=== PATIENT | female | born 1945 | race Caucasian/White ===

== ENCOUNTER 2017-05-26 08:20 | Day surgery (SDC) | payer MEDICARE, OTHER ==
[~2017-05-26] VITALS: Ht 170.2 cm; Wt 53.0 kg
[~2017-05-26 08:20] MED LIST: CHOL500051 PO; CITA20TA11 PO; DICL50TA7 PO; ESOM20CA28 PO; ETOD400T PO; HYDR-3090 PO; MULT-1018 PO; ONDA-54 PO; PARO40TA3 PO; Sodium Chloride LOK Flush 10 mL Syringe IV PRN; VENL37.53 PO; VENL75CA PO; VITA100C22 PO; fentaNYL-PF 50 mCg/mL 2 mL Inj IVPUSH PRN
[2017-05-26 08:50] VITALS: BP 133/87; PULSE 84; RESP 16; O2SAT 98
[2017-05-26] MEDS ORDERED: OMEP20CA11 PO (08:56)
[2017-05-26] MEDS: 0.9% Sodium Chloride 1,000 ML IV SCH ×3 (10:21→11:06)
[2017-05-26 11:12] VITALS: BP 126/77; PULSE 90; RESP 14; O2SAT 98
[2017-05-26 11:21] VITALS: BP 121/72; PULSE 88; RESP 14; O2SAT 92
[2017-05-26 11:31] VITALS: BP 131/76; PULSE 96; RESP 16; O2SAT 98
[2017-05-26 11:36] VITALS: BP 153/89; PULSE 92; RESP 14; O2SAT 98
--- NOTE | 2017-05-26 13:18 | ENDO ---
[address] [address] ENDOSCOPY PROCEDURE PATIENT: LATONIA FELIX : 1945 MR#: [id number] ADMIT: 05/26/2017 JOB ID: [id number] PREOPERATIVE DIAGNOSIS(ES): 1. History of gastroesophageal reflux disease. 2. Diarrhea. POSTOPERATIVE DIAGNOSIS(ES): 1. Small hiatal hernia. 2. 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 3. Pedunculated distal sigmoid colon polyp. OPERATION: 1. Upper endoscopy with duodenal gastric and gastroesophageal junction biopsies. 2. Colonoscopy to cecum with random colon biopsies and sigmoid colon snare polypectomy with cautery. SURGEON: Dakotah Duran MD INDICATIONS: A 71-year-old female who seven years ago I repaired a large recurrent hiatal hernia. She has some reflux symptoms. She also has diarrhea. After discussing the options with the patient, it was elected to proceed with an upper endoscopy as well as a colonoscopy. FINDINGS: The Z-line, which was irregular, was at around 40-41 cm from the incisors. The esophageal hiatus appeared to be slightly below that, suggesting a small hiatal hernia. There was no obvious neoplastic change or ulceration or stricture of the GE junction, but I did do biopsies because of the possibility of short-segment Owens's. Retroflexed views of the cardia showed an excellent flap valve. The fundus and body and antrum of the stomach appeared normal. I did biopsies of the antrum. The pylorus and duodenum into the second portion of the duodenum appeared normal. I did duodenal biopsies because of her diarrhea. The scope was advanced to the cecum. It was withdrawn over 8 minutes and 54 seconds. The appendiceal orifice and ileocecal valve were identified. I did not intubate the terminal ileum. She had a good prep. Random biopsies were obtained of normal colonic mucosa. In the distal sigmoid colon was a pedunculated polyp removed with a snare with cautery. The rectum was normal, including retroflexed views of the rectum. DESCRIPTION OF PROCEDURE: The procedure and sedation plan was discussed with the patient and nursing staff. A procedural time-out was held. She received 7 mg of Versed and 200 mcg of fentanyl for both procedures. The Olympus GIF H 180 J video endoscope was passed transorally, advanced into the second portion of the duodenum, with results and procedures as discussed above. Biopsies were taken. Not stated above is that there is a retained silk suture from her recurrent hiatal hernia repair. After repositioning, a digital rectal exam was performed. The Olympus PCF H 180 AL video colonoscope was passed transanally, advanced to the cecum. As it was withdrawn, random colonic biopsies were obtained, and then when the distal sigmoid colon polyp was identified it was removed with a snare and cautery. Retroflexed views of the rectum were normal. The patient tolerated the procedure well. PLAN: I will call her with the results of her biopsies and histology. At a minimum she should have a repeat colonoscopy in five years. Pending the results of her histology, she may need a repeat upper endoscopy in two years.
--- NOTE | 2017-05-30 11:03 | PATH ---
SURGICAL PATHOLOGY Attending Physician:Vanesa Melgar CASE STATUS: Signed Out PATIENT NAME: LATONIA FELIX PID: [id number] : 1945 DATE COLLECTED:05/26/2017 00:00 SPECIMEN: 1: Duodenum, Biopsy 2: Stomach, Antrum, Biopsy 3: Esophagus, Biopsy 4: Colon, Biopsy 5: Colon, Polyp CLINICAL HISTORY: 1). DUODENAL BIOPSY 2). ANTRUM BIOPSY 3). GE JUNCTION BIOPSY 4). RANDOM COLON BIOPSY 5). SIGMOID COLON POLYP FINAL DIAGNOSIS: 1. Duodenal Biopsy: Duodenal mucosa with no diagnostic alterations. Negative for inflammation, celiac, dysplasia, and malignancy. 2. Antrum Biopsy: Gastric antral mucosa with no diagnostic alterations Negative for Helicobacter organisms on H&E stains. Negative for intestinal metaplasia. Negative for dysplasia or malignancy. 3. GE Junction Biopsy: Squamocolumnar mucosa with intestinal metaplasia consistent with Owens's esophagus. Negative for dysplasia and malignancy. 4. Random Colon Biopsy: Mild chronic colitis with increased intraepithelial lymphocytes, see comment. Negative for dysplasia or malignancy. 5. Sigmoid Colon Polyp: Tubular adenoma. DIAGNOSIS COMMENT: The colonic mucosal biopsies (specimen 4) show mildly increased lymphocytes in the lamina propria and in gland and surface epithelium, with decreased surface mucin. No granulomas or crypt abscesses are identified. Gland architecture is intact. The differential diagnosis of this histologic pattern includes lymphocytic colitis, resolving infectious colitis, and drug toxicity. Correlation with clinical and endoscopic findings is recommended. ICD10: K22.70 K52.89 D12.5 GROSS DESCRIPTION: Received five formalin-filled containers each labeled with the patient' s name. 1. Received in formalin, labeled with the patient' s name and "duodenal biopsy", are three fragments of lieberman, soft tissue ranging from 0.1 x 0.1 x 0.1 cm to 0.3 x 0.2 x 0.1 cm. The fragments are totally submitted in cassette 1A. 2. Received in formalin, labeled with the patient' s name and "antrum biopsies", are two fragments of lieberman, soft tissue ranging from 0.2 x 0.1 x 0.1 cm to 0.3 x 0.2 x 0.1 cm. The fragments are totally submitted in cassette 2A. 3. Received in formalin, labeled with the patient' s name and "GEJ biopsies", are five fragments of lieberman, soft tissue ranging from 0.1 x 0.1 x 0.1 cm to 0.3 x 0.1 x 0.1 cm. The fragments are totally submitted in cassette 3A. 4. Received in formalin, labeled with the patient' s name and "random colon biopsies", are multiple fragments of lieberman, soft tissue ranging from 0.2 x 0.1 x 0.1 cm to 0.5 x 0.1 x 0.1 cm. The fragments are totally submitted in cassette 4A. 5. Received in formalin, labeled with the patient' s name and "sigmoid colon polyp", is one fragment of lieberman, soft tissue measuring 0.8 x 0.5 x 0.4 cm. The fragment is bisected and totally submitted in cassette 5A. [id number]) MICRO DESCRIPTION: Please see microscopic. ICD-9 CODES: CPT CODES: 1: 20907 2: 92183 3: 46475 4: 93478 5: 67426 Electronically Signed Out Bhavana Barrow MD [facility] [address], [place] [address] Technical component performed at [facility], [address], [place], [address]
== END 2017-05-26 23:59 | disposition home or self-care (01) ==
LOC: END 08:20
PROVIDERS: ATTEND Surgery
DX: D12.5 Benign neoplasm of sigmoid colon (principal); K52.89 Other specified noninfective gastroenteritis and colitis; K21.9 Gastro-esophageal reflux disease without esophagitis; K44.9 Diaphragmatic hernia without obstruction or gangrene; R19.7 Diarrhea, unspecified; R13.10 Dysphagia, unspecified; F17.210 Nicotine dependence, cigarettes, uncomplicated; Z79.899 Other long term (current) drug therapy
CPT/HCPCS: 43239; 45380; 45385; 99153; G0500; J2250; J3010; J7030